=== PATIENT | female | born 1995 | race African-American/Black ===

== ENCOUNTER 2018-12-20 08:16 | Emergency (ER) | payer OTHER ==
[2018-12-20 08:22] VITALS: TEMP 98.2
[2018-12-20] MEDS ORDERED: IBUPROFEN 600 MG TAB PO STA (08:36)
--- NOTE | 2018-12-20 08:53 | ED ---
Chest Pain HPI - General Chief Complaint: Chest Pain Stated Complaint: chest pain Time Seen by Provider: 12/20/18 08:31 Source: patient, RN notes reviewed Mode of arrival: ambulatory Limitations: no limitations - History of Present Illness Initial Comments: 23-year-old female presents emergency Department chief complaint chest discomfort. Patient states it started hurting when she was at work. Patient states she has greatly improved at this time she has pain when she presses over her chest when she takes a deep inspiration. She has no current resting shortness breath no palpitations denies any headache or dizziness no fevers chills no recent URI symptoms. 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 - Related Data Previous Rx's Medication Instructions Recorded Ibuprofen [Motrin] 600 mg PO Q8HR PRN #30 tab 12/20/18 Allergies Allergy/AdvReac Type Severity Reaction Status Date / Time Fish Containing Products Allergy Swelling Verified 12/20/18 08:49 [Fish] Review of Systems ROS Statement: Those systems with pertinent positive or pertinent negative responses have been documented in the HPI. ROS Other: All systems not noted in ROS Statement are negative. EKG Findings - EKG Comments: EKG Findings:: EKG performed at 18:57 normal sinus rhythm with inverted T wave in lead 3, rate of 76 MD 148 QRS 94 QTC is QTC 376/423 Past Medical History Past Medical History: Seizure Disorder History of Any Multi-Drug Resistant Organisms: None Reported Past Surgical History: No Surgical Hx Reported Past Psychological History: No Psychological Hx Reported Smoking Status: Never smoker Past Alcohol Use History: None Reported Past Drug Use History: None Reported General Exam Limitations: no limitations General appearance: alert, in no apparent distress Head exam: Present: atraumatic, normocephalic, normal inspection Eye exam: Present: normal appearance, PERRL, EOMI. Absent: scleral icterus, conjunctival injection, periorbital swelling ENT exam: Present: normal exam, normal oropharynx, mucous membranes moist Neck exam: Present: normal inspection, full ROM. Absent: tenderness, meningismus, lymphadenopathy Respiratory exam: Present: normal lung sounds bilaterally, chest wall tenderness (Anterior chest wall, sternal). Absent: respiratory distress, wheezes, rales, rhonchi, stridor Cardiovascular Exam: Present: regular rate, normal rhythm, normal heart sounds. Absent: systolic murmur, diastolic murmur, rubs, gallop, clicks GI/Abdominal exam: Present: soft, normal bowel sounds. Absent: distended, tenderness, guarding, rebound, rigid Course Vital Signs 12/20/18 08:19 Temperature 98.2 F Pulse Rate 77 Respiratory 18 Rate Blood Pressure 128/82 O2 Sat by Pulse 100 Oximetry Chest Pain MDM - MDM 23-year-old female presented for chest discomfort. Patient symptoms improved prior to arrival, symptoms are reproducible with palpation over the anterior chest wall primarily of the sternal border. She has no shortness of breath, palpitations or any other associated symptoms. Chest x-ray unremarkable other than mild irregularity along the FINANCIAL ADMINISTRATIVE ASSISTANT shunt on the right side. Patient is asymptomatic states that she's never had any issues with this and states that she had a placed when she was 4 years old. Disposition Clinical Impression: Costochondritis, acute Disposition: HOME SELF-CARE Condition: Stable Instructions (If sedation given, give patient instructions): Costochondritis (ED) Additional Instructions: Please return to the Emergency Department if symptoms worsen or any other concerns. Prescriptions: Ibuprofen [Motrin] 600 mg PO Q8HR PRN #30 tab PRN Reason: Pain Is patient prescribed a controlled substance at d/c from ED?: No Referrals: None,Stated [Primary Care Provider] - 1-2 days Time of Disposition: 09:33
--- NOTE | 2018-12-20 09:25 | XR ---
EXAMINATION TYPE: XR chest 2V DATE OF EXAM: 12/20/2018 COMPARISON: NONE TECHNIQUE: PA and lateral views submitted. HISTORY: Chest pain FINDINGS: The lungs are clear and there is no pneumothorax, pleural effusion, or focal pneumonia. Right-sided HOUSE PAINTER shunt catheter noted with some irregularity of the catheter in the soft tissues. No overt failure . Catheter seen extending in the upper abdomen. IMPRESSION: 1. No acute process. There is some mild irregularity of the HOUSE PAINTER shunt catheter with the soft tissue th e neck region correlate clinically.
[2018-12-20 09:46] VITALS: BP 124/78; PULSE 75; RESP 16
== END 2018-12-20 09:40 | disposition home or self-care (01) ==
LOC: EC 08:16
DX: M94.0 Chondrocostal junction syndrome [Tietze] (principal); Z91.013 Allergy to seafood; Z98.2 Presence of cerebrospinal fluid drainage device
CPT/HCPCS: 71046; 93005; 99285